=== PATIENT | male | born 1955 | race Caucasian/White ===

== ENCOUNTER → 2024-04-11 | Outpatient (CLI) | payer OTHER ==
[~2024-04-11] MED LIST: ACET325 PO; ALBU90OI6 INH; ALBU90OI61 INH; GEMF600 PO; OMEP40CA12 PO; TRIA80TC TOP
[2024-04-11 12:32] LABS: BASOPHILS ABSOLUTE AUTO 0.04 K/mm3 (0.00-0.23); BASOPHILS PERCENT AUTO 1 % (0-2); EOSINOPHILS ABSOLUTE AUTO 0.14 K/mm3 (0.00-0.68); EOSINOPHILS PERCENT AUTO 2 % (0-6); Hematocrit 40.7 % (37.0-53.0); Hemoglobin 13.7 g/dL (13.5-17.5); IMMATURE GRAN ABSOLUTE AUTO 0.01 K/mm3 (0.00-0.10); IMMATURE GRAN PERCENT AUTO 0 % (0-1); LYMPHOCYTES ABSOLUTE AUTO 1.55 K/mm3 (0.84-5.20); LYMPHOCYTES PERCENT AUTO 27 % (21-46); MONOCYTES PERCENT AUTO 7 % (4-13); Mean Corpuscular HGB 32.1 pg (26.0-34.0); Mean Corpuscular HGB Conc 33.7 g/dL (31.5-36.5); Mean Corpuscular Volume 95 fL (80-100); NEUTROPHILS ABSOLUTE AUTO 3.63 K/mm3 (1.96-9.15); NEUTROPHILS PERCENT AUTO 63 % (41-73); Platelet Count 188 K/mm3 (150-400); RDW Coefficient Variation 12.1 % (11.7-14.2); RDW Standard Deviation 41.8 fL (35.1-46.3); Red Blood Cell Count 4.27 M/mm3 (4.30-5.90); White Blood Cell Count 5.77 K/mm3 (4.00-11.30)
[2024-04-11 12:51] LABS: Albumin, Blood 4.2 g/dL (3.4-5.0); Albumin/Globulin Ratio 1.2 (0.8-1.8); Bilirubin, Total 0.4 mg/dL (0.1-1.0); Creatinine, Blood 0.89 mg/dL (0.60-1.20); Globulin, Blood 3.6 g/dL (2.2-4.0); Potassium, Blood 4.3 mmol/L (3.5-5.5); Thyroid Stimulating Hormone 3.487 uIU/mL (0.360-4.800); Total Protein, Blood 7.8 g/dL (6.4-8.2)
== END | disposition home or self-care (01) ==
LOC: LAB 12:25 → LAB SHORT 12:25
PROVIDERS: Physician Assistant
DX: R07.9 Chest pain, unspecified (principal); R53.83 Other fatigue
CPT/HCPCS: 80053; 83690; 84443; 84484; 85025

== ENCOUNTER 2024-06-13 09:16 | Emergency (ER) | payer OTHER ==
[~2024-06-13] VITALS: Ht 170.2 cm; Wt 93.9 kg
[2024-06-13] MEDS ORDERED: MELO7.5 PO (09:43)
[2024-06-13] MEDS ORDERED: TAMSULOSIN HCL0.4 M1 (09:43)
[2024-06-13 10:21] VITALS: BP 148/81
[2024-06-13] MEDS ORDERED: TESTOSTERONE60 GM (10:21)
[2024-06-13] MEDS ORDERED: ACYC800 PO (10:42)
[2024-06-13] MEDS ORDERED: Prednisone20 MG PO (10:42)
== END 2024-06-13 10:55 | disposition home or self-care (01) ==
LOC: ER 09:16
DX: G51.0 Bell's palsy (principal); N40.0 Benign prostatic hyperplasia without lower urinary tract symptoms; E78.00 Pure hypercholesterolemia, unspecified; M19.90 Unspecified osteoarthritis, unspecified site; Z91.013 Allergy to seafood; Z79.1 Long term (current) use of non-steroidal anti-inflammatories (NSAID); Z79.899 Other long term (current) drug therapy
CPT/HCPCS: 99283

== ENCOUNTER → 2025-02-05 | Outpatient (CLI) | payer OTHER ==
[~2025-02-05] MED LIST changes: +ACYC800 PO; +MELO7.5 PO; +Prednisone20 MG PO; +TAMSULOSIN HCL0.4 M1; +TESTOSTERONE60 GM
[2025-02-05 15:07] LABS: BASOPHILS ABSOLUTE AUTO 0.04 K/mm3 (0.00-0.23); BASOPHILS PERCENT AUTO 1 % (0-2); EOSINOPHILS PERCENT AUTO 2 % (0-6); Hematocrit 42.9 % (37.0-53.0); Hemoglobin 14.8 g/dL (13.5-17.5); IMMATURE GRAN ABSOLUTE AUTO 0.01 K/mm3 (0.00-0.10); IMMATURE GRAN PERCENT AUTO 0 % (0-1); LYMPHOCYTES ABSOLUTE AUTO 1.77 K/mm3 (0.84-5.20); LYMPHOCYTES PERCENT AUTO 32 % (21-46); MONOCYTES ABSOLUTE AUTO 0.32 K/mm3 (0.16-1.47); MONOCYTES PERCENT AUTO 6 % (4-13); Mean Corpuscular HGB 32.1 pg (26.0-34.0); Mean Corpuscular HGB Conc 34.5 g/dL (31.5-36.5); Mean Corpuscular Volume 93 fL (80-100); Mean Platelet Volume 9.8 fL (9.1-12.4); NEUTROPHILS ABSOLUTE AUTO 3.29 K/mm3 (1.96-9.15); NEUTROPHILS PERCENT AUTO 60 % (41-73); Platelet Count 178 K/mm3 (150-400); RDW Coefficient Variation 12.3 % (11.7-14.2); RDW Standard Deviation 42.1 fL (35.1-46.3); Red Blood Cell Count 4.61 M/mm3 (4.30-5.90); White Blood Cell Count 5.53 K/mm3 (4.00-11.30)
[2025-02-05 15:21] LABS: Albumin, Blood 4.4 g/dL (3.4-5.0); Albumin/Globulin Ratio 1.3 (0.8-1.8); Bilirubin, Total 0.8 mg/dL (0.1-1.0); Bun/Creatinine Ratio 13.2 (12.0-20.0); Creatinine, Blood 0.91 mg/dL (0.60-1.20); Globulin, Blood 3.3 g/dL (2.2-4.0); Total Protein, Blood 7.7 g/dL (6.4-8.2)
== END ==
LOC: LAB 15:03 → LAB SHORT 15:03
PROVIDERS: Physician Assistant
DX: R07.9 Chest pain, unspecified (principal)
CPT/HCPCS: 80053; 84484; 85025

== ENCOUNTER 2025-08-11 20:48 | Emergency (ER) | payer OTHER ==
[~2025-08-11] VITALS: Ht 170.2 cm; Wt 90.7 kg
[~2025-08-11 20:48] MED LIST changes: +ALBU90OI INH; -ALBU90OI6 INH; +TAMS.4ER PO; -TAMSULOSIN HCL0.4 M1
[2025-08-11 21:19] LABS: BASOPHILS ABSOLUTE AUTO 0.04 K/mm3 (0.00-0.23); BASOPHILS PERCENT AUTO 1 % (0-2); EOSINOPHILS ABSOLUTE AUTO 0.24 K/mm3 (0.00-0.68); EOSINOPHILS PERCENT AUTO 4 % (0-6); Hematocrit 39.7 % (37.0-53.0); Hemoglobin 13.5 g/dL (13.5-17.5); IMMATURE GRAN ABSOLUTE AUTO 0.03 K/mm3 (0.00-0.10); IMMATURE GRAN PERCENT AUTO 0 % (0-1); LYMPHOCYTES ABSOLUTE AUTO 1.80 K/mm3 (0.84-5.20); LYMPHOCYTES PERCENT AUTO 26 % (21-46); MONOCYTES ABSOLUTE AUTO 0.61 K/mm3 (0.16-1.47); MONOCYTES PERCENT AUTO 9 % (4-13); Mean Corpuscular HGB Conc 34.0 g/dL (31.5-36.5); Mean Corpuscular Volume 94 fL (80-100); NEUTROPHILS ABSOLUTE AUTO 4.13 K/mm3 (1.96-9.15); NEUTROPHILS PERCENT AUTO 60 % (41-73); NRBC ABSOLUTE 0.00 K/mm3 (0.00-0.02); NRBC Auto 0.0 /100 WBC (0.0-0.2); Platelet Count 160 K/mm3 (150-400); RDW Coefficient Variation 12.3 % (11.7-14.2); RDW Standard Deviation 42.4 fL (35.1-46.3)
[2025-08-11 21:38] LABS: Alanine Aminotransfer (ALT/SGP 34.0 U/L (12-78); Albumin, Blood 4.1 g/dL (3.4-5.0); Albumin/Globulin Ratio 1.4 (0.8-1.8); Anion Gap 7.0 mmol/L (3-11); Aspartate Aminotrans (AST/SGOT 31.0 U/L (12-37); Bilirubin, Total 0.6 mg/dL (0.1-1.0); Blood Urea Nitrogen 15.0 mg/dL (8-24); CO2, Blood 26.0 mmol/L (21-32); Calcium, Blood 9.3 mg/dL (8.5-10.1); Chloride, Blood 110.0 mmol/L (98-108); Creatinine, Blood 1.1 mg/dL (0.60-1.20); Globulin, Blood 2.9 g/dL (2.2-4.0); Glucose, Blood 132.0 mg/dL (70-99); Potassium, Blood 4.1 mmol/L (3.5-5.5); Sodium, Blood 139.0 mmol/L (136-145); Total Protein, Blood 7.0 g/dL (6.4-8.2)
[2025-08-11] MEDS ORDERED: NS 1,000 ML IV SCH (23:00)
[2025-08-11] MEDS ORDERED: RX Prepack 6 Tabs Oxycodone 5mg UD ONE (23:15)
[2025-08-12 00:18] VITALS: BP 173/88
[2025-08-12] MEDS ORDERED: CEPH500 PO (00:50)
[2025-08-12] MEDS ORDERED: OXAYDO5 M1 PO (00:50)
[2025-08-15] MEDS ORDERED: CEPH250A PO (10:41)
[2025-08-15] MEDS ORDERED: TESTOSTERONE TOP (10:42)
[2025-08-15] MEDS ORDERED: ARTHRITIS PAIN150 GM TOP (10:43)
[2025-08-15] MEDS ORDERED: OXYC5 PO (10:44)
[2025-08-15] MEDS ORDERED: TERB250 PO (10:45)
== END 2025-08-12 01:24 | disposition home or self-care (01) ==
LOC: ER 20:48
PROVIDERS: Student in an Organized Health Care Education/Training Program
DX: S52.502A Unspecified fracture of the lower end of left radius, initial encounter for closed fracture (principal); S00.03XA Contusion of scalp, initial encounter; Z23 Encounter for immunization; Z91.013 Allergy to seafood; Z88.8 Allergy status to other drugs, medicaments and biological substances; Z79.899 Other long term (current) drug therapy; M19.90 Unspecified osteoarthritis, unspecified site; Z59.89 Other problems related to housing and economic circumstances
CPT/HCPCS: 25605; 70450; 73100; 73110; 80053; 83880; 84484; 85025; 90471; 90715; 99284-25; A9270; J7030

== ENCOUNTER 2025-08-17 10:56 | Day surgery (SDC) | payer OTHER ==
[2025-08-17] VITALS (10 sets, daily range): BP systolic 131–160; BP diastolic 75–86
[~2025-08-17] VITALS: Ht 165.1 cm; Wt 90.0 kg
[~2025-08-17 10:56] MED LIST changes: +ARTHRITIS PAIN150 GM TOP; +CEPH250A PO; +CEPH500 PO; +OXAYDO5 M1 PO; +OXYC5 PO; +TERB250 PO; +TESTOSTERONE TOP
[2025-08-17] MEDS ORDERED: ASPI81CH PO (11:46)
[2025-08-17] MEDS ORDERED: CLOP75 PO (11:47)
[2025-08-17] MEDS ORDERED: METO25ER PO (11:48)
[2025-08-17] MEDS ORDERED: ATOR40TA PO (11:49)
[2025-08-17] MEDS ORDERED: Isosorbide Mono30 MG PO (11:49)
[2025-08-17] MEDS ORDERED: FentaNYL Citrate 50 MCG/ML 2 ML Injection ONE (11:58)
[2025-08-17] MEDS ORDERED: Midazolam HCl 1MG / ML 2ML Vial ONE (11:59)
[2025-08-17] MEDS ORDERED: CeFAZolin Sodium 2,000 MG in NS 100 ML IV SCH (12:25)
[2025-08-17] MEDS ORDERED: Bupivacaine 0.5% W/EPI 1:200000 SDV 30 ML Vial ONE (13:05)
[2025-08-17] MEDS ORDERED: FentaNYL Citrate 50 MCG/ML 2 ML Injection IV PRN ×2 (13:35→13:40)
[2025-08-17] MEDS ORDERED: HYDROmorphone HCl/Pf 1MG SYR IV PRN ×2 (13:35→13:40)
[2025-08-17] MEDS ORDERED: Ondansetron HCl 2 MG / ML 2ML Vial IV PRN (13:35)
[2025-08-17] MEDS ORDERED: Lidocaine HCL 1% 10 ML MDV ONE (13:58)
[2025-08-17] MEDS ORDERED: ePHEDrine Sulfate 50 MG/ML 1ML Injection ONE (13:58)
[2025-08-17] MEDS ORDERED: Bupivacaine HCl 2.5 MG/ML 10ML P/F Injection ONE (13:58)
[2025-08-17] MEDS ORDERED: Ketorolac Tromethamine 30mg Vial ONE (14:16)
[2025-08-17] MEDS ORDERED: HYDROmorphone HCl/Pf 1MG SYR ONE (14:57)
--- NOTE | 2025-08-17 15:21 | NUR ---
Report received from Sanchez THOMAS. VSS. Pt on RA. Pt A&OX4. Pt able to reposition self in bed. Pt requesting PO fluids and alexy them well. Pt has gauze/ana maría wrap to Left wrist that is CDI. Pt has brisk cap refill and able to wiggle fingers freely on operative side. Pt reports 5/10 aching pain to wrist. Pt denies nausea or other discomforts. Pt family members at bedside.
--- NOTE | 2025-08-17 16:10 | NUR ---
Patient up to Ambulate independently with personal cane. Gait steady and consistent with pt baseline. VSS and consistent with pt baseline. Pt reports pain is tolerable and verbalizes readiness to go home. Discharge instructions reviewed with patient and his family. Patient verbalizes understanding. Copy given to patient to take home. Dressing to procedure site clean, dry, intact with no visible drainage, swelling, erythema or bruising noted. Pt has brisk cap refill and can wiggle fingers on operative side freely. Patient States Post-Procedure ride home has been arranged. Discharged via wheelchair to private car for ride home. Pt belongings returned to pt.
== END 2025-08-17 16:10 | disposition home or self-care (01) ==
LOC: ORSCMMR 10:56 → ORD 12:30 → ORSCMMR 12:30
PROVIDERS: Orthopaedic Surgery
PROC: 0PSH04Z Reposition Right Radius with Internal Fixation Device, Open Approach (ICD-10-PCS; principal; 2025-08-17 12:30)
DX: S52.571A Other intraarticular fracture of lower end of right radius, initial encounter for closed fracture (principal); W18.30XA Fall on same level, unspecified, initial encounter; I10 Essential (primary) hypertension; E78.5 Hyperlipidemia, unspecified; J45.909 Unspecified asthma, uncomplicated; G47.33 Obstructive sleep apnea (adult) (pediatric); G51.0 Bell's palsy; Z79.02 Long term (current) use of antithrombotics/antiplatelets; Z79.899 Other long term (current) drug therapy
CPT/HCPCS: A9270; C1713; J0690; J1171; J1885; J2003; J2250; J2704; J3010; J7120